=== PATIENT | male | born 1990 | race African-American/Black ===

== ENCOUNTER 2018-12-23 19:13 | Emergency (ER) | payer OTHER ==
[~2018-12-23] VITALS: Ht 167.6 cm; Wt 149.7 kg
[2018-12-23 21:48] VITALS: BP 134/86
--- NOTE | 2018-12-24 09:45 | EKG ---
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 : 1990 Requested By: Farhad Guillen Order Number: [id number] MD: Amos Echevarria Measurements Intervals [place] Rate: 88 P: 51 [place]: 152 QRS: 31 QRSD: 91 T: 19 QT: 369 QTc: 447 Interpretive Statements Sinus rhythm ST elev, probable normal early repol pattern Baseline wander in lead(s) V6 No previous ECG available for comparison Electronically Signed On 12-24-2018 9:45:04 CDT by Amos Echevarria [email or web address] ��������������������������������������������� <ELECTRONICALLY SIGNED> ���������������������������������������� By: Amos Echevarria MD, [facility] ��������������������������������������������� 12/24/18 0945 192 21 Amos Echevarria MD, FACC /EPI
== END 2018-12-23 21:46 | disposition home or self-care (01) ==
LOC: ER 19:13
DX: R07.89 Other chest pain (principal)